=== PATIENT | female | born 1960 | race Asian ===

== ENCOUNTER 2017-04-12 10:50 | Outpatient (CLI) | payer BC | END 2017-04-12 19:06 | disposition home or self-care (01) | LOC: SMA 10:50 | PROVIDERS: ATTEND Internal Medicine Medical Oncology | DX: N63 Unspecified lump in breast (principal); C54.9 Malignant neoplasm of corpus uteri, unspecified | CPT/HCPCS: 76641; G0204 ==

== ENCOUNTER 2017-09-16 13:22 | Outpatient (CLI) | payer BC | END 2017-09-16 19:39 | disposition home or self-care (01) | LOC: SMA 13:22 → SUS 19:39 | PROVIDERS: ATTEND Internal Medicine Medical Oncology | DX: N60.02 Solitary cyst of left breast (principal); N60.01 Solitary cyst of right breast; C54.1 Malignant neoplasm of endometrium | CPT/HCPCS: 76641 ==

== ENCOUNTER 2017-10-29 09:32 | Outpatient (CLI) | payer BC | END 2017-10-29 17:15 | disposition home or self-care (01) | LOC: SMA 09:32 | PROVIDERS: ATTEND Internal Medicine Medical Oncology | DX: N60.02 Solitary cyst of left breast (principal); N64.89 Other specified disorders of breast | CPT/HCPCS: 77066 ==

== ENCOUNTER 2018-01-19 12:58 | Outpatient (CLI) | payer BC | END 2018-01-19 20:50 | disposition home or self-care (01) | LOC: SMA 12:58 | PROVIDERS: ATTEND Internal Medicine Medical Oncology | DX: N60.02 Solitary cyst of left breast (principal) | CPT/HCPCS: 76641; 77066 ==

== ENCOUNTER 2018-08-18 10:29 | Outpatient (CLI) | payer BC | END 2018-08-18 19:18 | disposition home or self-care (01) | LOC: SMA 10:29 | PROVIDERS: ATTEND Internal Medicine Medical Oncology | DX: N60.02 Solitary cyst of left breast (principal); R92.8 Other abnormal and inconclusive findings on diagnostic imaging of breast | CPT/HCPCS: 76641; 77066 ==

== ENCOUNTER 2019-02-16 10:05 | Outpatient (CLI) | payer BC | END 2019-02-16 20:43 | disposition home or self-care (01) | LOC: SMA 10:05 | PROVIDERS: ATTEND Internal Medicine Medical Oncology | DX: N63.10 Unspecified lump in the right breast, unspecified quadrant (principal); N63.20 Unspecified lump in the left breast, unspecified quadrant; C54.1 Malignant neoplasm of endometrium | CPT/HCPCS: 76641; 77066 ==